=== PATIENT | male | born 1990 | race Caucasian/White ===

== ENCOUNTER 2016-10-14 15:15 | Inpatient (IN) | payer OTHER ==
[~2016-10-14] VITALS: Ht 180.3 cm; Wt 71.4 kg
[2016-10-14 16:15] VITALS: BP 144/68
[2016-10-14] MEDS ORDERED: KLONOPIN1 M1 PO (16:30)
[2016-10-14] MEDS ORDERED: NEURONTIN600 MG PO (16:31)
[2016-10-14] MEDS ORDERED: CITALOPRAM20 MG PO (16:42)
[2016-10-14 17:18] LABS: BILIRUBIN NEGATIVE (NEGATIVE); BLOOD 3+ (NEGATIVE); CLARITY SL CLOUDY (CLEAR); COLOR YELLOW (YELLOW); GLUCOSE NEGATIVE (NEGATIVE); KETONE NEGATIVE (NEGATIVE); LEUKO ESTERASE NEGATIVE (NEGATIVE); NITRITE NEGATIVE (NEGATIVE); PH 5.5 (5.0-9.0); PROTEIN 1+ (NEGATIVE); SPECIFIC GRAVITY >= 1.030 (1.005-1.030); UROBILINOGEN 0.2 E.U./dl (0.2-1.0)
[2016-10-14 17:26] LABS: BASO % 0.3 % (0.0-1.0); EOS # 0.4 10*3/uL (0.0-0.4); EOS % 3.5 % (1.0-4.0); HEMOGLOBIN 15.3 g/dl (14.0-18.0); LYMPH # 2.6 10*3/uL (1.3-4.4); LYMPH % 26.3 % (27.0-41.0); MEAN CELL VOLUME 88.7 fl (80.0-94.0); MEAN CORPUSCULAR HGB 30.8 pg (27.0-31.0); MEAN CORPUSCULAR HGB CONC 34.8 g/dl (33.0-37.0); MONO # 0.9 10*3/uL (0.1-1.0); NEUT # 6.1 10*3/uL (2.3-7.9); NEUT % 60.7 % (47.0-73.0); PLATELET COUNT AUTOMATED 285 10*3/uL (130-400); RED BLOOD COUNT 4.96 10*6/uL (4.50-5.90); RED CELL DISTRI WIDTH 11.7 % (0-14.5)
[2016-10-14 17:28] LABS: URINE AMPHETAMINES < 1000 (1000ng/ml); URINE BARBITURATES < 200 (200ng/ml); URINE COCAINE > 300 (300ng/ml)
[2016-10-14 17:29] LABS: BACTERIA 1+; RBC 51-100 rbc/hpf (0-2); URINE REFLEX COMMENT YES (NO)
[2016-10-14 17:42] LABS: ALBUMIN 4.2 gm/dl (3.1-4.5); ALKALINE PHOSPHATASE 60 U/L (45-117); BILIRUBIN, TOTAL 0.4 mg/dl (0.2-1.0); BUN 16 mg/dl (7-24); CARBON DIOXIDE 32 mmol/L (21-32); CHLORIDE 99 mmol/L (98-107); EST GLOM FILT AFRICAN AMERICAN > 60 ml/min; GLUCOSE 93 mg/dL (65-99); SGOT/AST 24 IU/L (3-35); SGPT/ALT 25 U/L (12-78); SODIUM 139 mmol/L (136-145); TOTAL PROTEIN 7.1 gm/dL (6.4-8.2)
[2016-10-14 17:44] LABS: PROTHROMBIN TIME 10.7 SECONDS (9.0-12.4)
[2016-10-14 20:00] VITALS: BP 118/75
[2016-10-15] VITALS (7 sets, daily range): BP systolic 101–134; BP diastolic 48–67
[2016-10-16] VITALS: BP 94/50
[2016-10-16 07:58] VITALS: BP 122/40
[2016-10-16] MEDS ORDERED: ATARAX,VISTARIL50 MG PO (10:57)
[2016-10-16] MEDS ORDERED: ROPINIROLE HYD0.5 MG PO (10:57)
[2016-10-16] MEDS ORDERED: METHOCARBAMOL750 M1 PO (10:57)
[2016-10-16] MEDS ORDERED: ZOFRAN 4 MG ED2 TAB PO (10:59)
== END 2016-10-16 11:53 | disposition home or self-care (01) | DRG 897 ==
LOC: 4E 15:15
PROVIDERS: Internal Medicine Hospice and Palliative Medicine
DX: F11.23 Opioid dependence with withdrawal (principal); F14.90 Cocaine use, unspecified, uncomplicated; R31.29 Other microscopic hematuria; F19.90 Other psychoactive substance use, unspecified, uncomplicated; Z71.6 Tobacco abuse counseling

== ENCOUNTER 2019-07-20 16:46 | Inpatient (IN) | payer OTHER ==
[~2019-07-20] VITALS: Ht 180.3 cm; Wt 70.5 kg
[~2019-07-20 16:46] MED LIST: ADDERALL 30 MG30 MG PO; ATARAX,VISTARIL50 MG PO; CITALOPRAM20 MG PO; KLONOPIN1 M1 PO; METHOCARBAMOL750 M1 PO; NEURONTIN600 MG PO; ROPINIROLE HYD0.5 MG PO; XANAX2 M1 PO; ZOFRAN 4 MG ED2 TAB PO
[2019-07-20 18:00] VITALS: BP 129/81
--- NOTE | 2019-07-20 18:00 | NUR ---
29 year old MALE admitted to room # 517 for stabilization. Reports an addiction to CRACK/COCAINE last used 07/19/19 hours prior to admission. Compliant with admission procedure. Patient denies any anxiety, but is unable to sit still, taps toes to floor continuously, looks about room, unable to focus eyes on nurse during interview. See assessment forms for additional information about patient status. INITIAL ASSESSMENT IS COMPLETE. NO QUESTIONS AT THIS TIME.
--- NOTE | 2019-07-20 18:08 | NUR ---
PATIENT MEETS [facility]. CINA=16. PATIENT WANTS TO FOLLOW UP WITH OUTPATIENT TREATMENT NEAR HIS HOMEL [facility] STAFF WILL PROVIDE REFERRAL OPTIONS. XIOMARA LAWTON B.A. CHILD SUPPORT INVESTIGATOR
[2019-07-20 18:41] LABS: BASO % 0.3 % (0.0-1.0); EOS # 0.2 10*3/uL (0.0-0.4); EOS % 1.5 % (1.0-4.0); HEMATOCRIT 49.6 % (42.0-52.0); HEMOGLOBIN 16.9 g/dl (14.0-18.0); LYMPH # 2.8 10*3/uL (1.3-4.4); LYMPH % 24.4 % (27.0-41.0); MEAN CORPUSCULAR HGB 31.4 pg (27.0-31.0); MEAN CORPUSCULAR HGB CONC 34.1 g/dl (33.0-37.0); MEAN PLATELET VOLUME 8.9 fl (9.6-12.3); MONO # 0.7 10*3/uL (0.1-1.0); MONO % 5.9 % (3.0-9.0); NEUT # 7.6 10*3/uL (2.3-7.9); NEUT % 67.5 % (47.0-73.0); PLATELET COUNT AUTOMATED 404 10*3/uL (130-400); RED BLOOD COUNT 5.39 10*6/uL (4.50-5.90); RED CELL DISTRI WIDTH 12.9 % (0-14.5); WHITE BLOOD COUNT 11.3 10*3/uL (4.8-10.8)
[2019-07-20 18:52] LABS: INTERNATIONAL NORM RATIO 0.9 (2.0-3.5)
[2019-07-20 18:55] LABS: ALBUMIN 4.7 gm/dl (3.1-4.5); ALKALINE PHOSPHATASE 74 U/L (45-117); BUN 12 mg/dl (7-24); CHLORIDE 101 mmol/L (98-107); CREATININE 1.03 mg/dL (0.70-1.30); POTASSIUM 4.2 mmol/L (3.5-5.1); SGOT/AST 19 IU/L (3-35); SGPT/ALT 30 U/L (12-78); SODIUM 137 mmol/L (136-145); TOTAL PROTEIN 8.4 gm/dL (6.4-8.2)
[2019-07-20 20:00] VITALS: BP 128/63
--- NOTE | 2019-07-20 20:30 | NUR ---
RESTING IN BED WITH NO DISTRESS NOTED. RESPIRATIONS EASY. LUNGS DIMINISHED, CLEAR. PULSE OX 100% RA. CALL LIGHT WITHIN REACH. NO VOICED COMPLAINTS
--- NOTE | 2019-07-20 20:50 | NUR ---
24 HR chart check completed.
--- NOTE | 2019-07-20 21:39 | NUR ---
Patient displaying withdrawal symptoms, including: anxiousness AND restlessness. Scheduled medications provided, SEE EMAR. Will continue to monitor medication effectiveness.
[2019-07-20 21:48] LABS: BILIRUBIN NEGATIVE (NEGATIVE); BLOOD NEGATIVE (NEGATIVE); CLARITY CLEAR (CLEAR); COLOR YELLOW (YELLOW); GLUCOSE NEGATIVE (NEGATIVE); KETONE NEGATIVE (NEGATIVE); NITRITE NEGATIVE (NEGATIVE); PH 6.5 (5.0-9.0); SPECIFIC GRAVITY 1.015 (1.005-1.030); UROBILINOGEN 0.2 E.U./dl (0.2-1.0)
[2019-07-20 21:49] LABS: EPITHELIAL CELLS 0-2; LEUKO ESTERASE NEGATIVE (NEGATIVE)
[2019-07-20 21:50] LABS: URINE AMPHETAMINES < 1000 (1000ng/ml); URINE BARBITURATES < 200 (200ng/ml); URINE BENZODIAZEPINES < 200 (200ng/ml); URINE CANNABINOIDS (THC) < 50 (50ng/ml); URINE COCAINE > 300 (300ng/ml); URINE METHADONE < 300 (300ng/ml); URINE OPIATES < 300 (300ng/ml); URINE PHENCYCLIDINE < 25 (25ng/ml)
--- NOTE | 2019-07-20 23:00 | NUR ---
Patient resting. Responding to scheduled medications with fewer complaints of pain and anxiety.
[2019-07-21] VITALS: BP 128/63
--- NOTE | 2019-07-21 00:10 | NUR ---
AMBULATING HALLWAY. NO DISTRESS NOTED. NO VOICED COMPLAINTS
[2019-07-21 04:00] VITALS: BP 122/60
--- NOTE | 2019-07-21 06:00 | NUR ---
Patient resting. Responding to scheduled medications with fewer complaints of pain and anxiety.
--- NOTE | 2019-07-21 11:56 | NUR ---
Nutritional Support Services Note: Pt with dx of opiate withdrawal, ADHD and anxiety. Pt states he has had a loss of appetite and unintentional weight loss recently. Ht.5'11 Wt.156# IBW 172#. Pt is receiving a regular diet which he is eating 100% of. He receive a snack at HS and as desired. Encouraged continued good intake of meals. Pt is underweight but do no see any signs of malnutrition at this time. Will follow as needed. Geraldine Calvillo Rdn Ld
[2019-07-21 12:00] VITALS: BP 108/55
--- NOTE | 2019-07-21 15:37 | NUR ---
[facility] IN TO SEE PATIENT. [facility] PROVIDED REFERRAL OPTIONS. PATIENT IS GOING TO FOLLOW UP WITH COUNSELING. PATIENT WANTS TO SET UP HIS OWN APPOINTMENT. PATIENT AGREES AND UNDERTANDS HIS AFTERCARE PLAN. XIOMARA LAWTON B.A. CASINO CAGE SUPERVISOR
[2019-07-21 16:00] VITALS: BP 110/60
[2019-07-21 20:00] VITALS: BP 118/69
--- NOTE | 2019-07-21 20:00 | NUR ---
Patient resting quietly with no c/o discomfort. Respirations easy and regular. Vital signs stable. No overt distress. LOVE KC
[2019-07-22] VITALS: BP 107/53
--- NOTE | 2019-07-22 05:31 | NUR ---
24 HR chart check completed.
[2019-07-22 08:00] VITALS: BP 102/61
[2019-07-22] MEDS ORDERED: ZOFRAN4 MG PO (10:57)
[2019-07-22] MEDS ORDERED: ATARAX,VISTARIL50 MG PO (10:57)
--- NOTE | 2019-07-22 13:35 | NUR ---
Patient discharged in stable condition, referral letter provided to patient with specific instructions and appointment for ongoing treatment. Patient verbalizes understanding of discharge plan.
== END 2019-07-22 13:30 | disposition home or self-care (01) | DRG 773 ==
LOC: 5E 16:46
PROVIDERS: Internal Medicine; ADMIT Internal Medicine
DX: F14.23 Cocaine dependence with withdrawal (principal); D47.3 Essential (hemorrhagic) thrombocythemia; D72.810 Lymphocytopenia; F11.20 Opioid dependence, uncomplicated; F90.9 Attention-deficit hyperactivity disorder, unspecified type; F41.9 Anxiety disorder, unspecified; G47.00 Insomnia, unspecified; F12.10 Cannabis abuse, uncomplicated; Z79.899 Other long term (current) drug therapy; Z72.0 Tobacco use; Z71.6 Tobacco abuse counseling

== ENCOUNTER 2019-12-22 14:46 | Inpatient (IN) | payer OTHER ==
[~2019-12-22] VITALS: Ht 154.9 cm; Wt 72.3 kg
[~2019-12-22 14:46] MED LIST changes: +ZOFRAN4 MG PO
[2019-12-22 15:50] VITALS: BP 103/63
--- NOTE | 2019-12-22 15:50 | NUR ---
Time: 1549 A 29 year old MALE admitted to under services of RODRIGO BENITEZ DO. Pt. arrived via stretcher from [place]. Chief complaint: HERE FOR MEDICAL STABILIZATION FOR OPIATE WITHDRAWAL. ZENON AWAD
--- NOTE | 2019-12-22 16:06 | NUR ---
PATIENT MEETS [facility]. PATIENT WANTS TO FOLLOW UP WITH [facility] FOR HIS AFTERCARE PLAN. XIOMARA LAWTON B.A. FORM BUILDER
--- NOTE | 2019-12-22 16:16 | NUR ---
Notified Dr. Pacheco that pt is here. Notified of meds he takes at home and hx.
--- NOTE | 2019-12-22 17:17 | NUR ---
Pt has come up to the nurses station twice asking when meds will start. I spoke with Dr. Toscano regarding this as pt is not ordered any taper yet just PRN meds. States she will be up to see pt.
[2019-12-22 17:47] LABS: BILIRUBIN NEGATIVE (NEGATIVE); BLOOD NEGATIVE (NEGATIVE); CLARITY SL CLOUDY (CLEAR); COLOR YELLOW (YELLOW); GLUCOSE NEGATIVE (NEGATIVE); KETONE NEGATIVE (NEGATIVE); LEUKO ESTERASE NEGATIVE (NEGATIVE); NITRITE NEGATIVE (NEGATIVE); PH 7.5 (5.0-9.0); UROBILINOGEN 0.2 E.U./dl (0.2-1.0)
[2019-12-22 17:52] LABS: URINE AMPHETAMINES < 1000 (1000ng/ml); URINE BARBITURATES < 200 (200ng/ml); URINE BENZODIAZEPINES > 200 (200ng/ml); URINE CANNABINOIDS (THC) > 50 (50ng/ml); URINE COCAINE > 300 (300ng/ml); URINE METHADONE > 300 (300ng/ml); URINE OPIATES < 300 (300ng/ml)
[2019-12-22 17:53] LABS: URINE PHENCYCLIDINE < 25 (25ng/ml)
[2019-12-22 17:59] LABS: WBC 0-2 wbc/hpf (0-5)
[2019-12-22 19:36] LABS: BASO % 0.2 % (0.0-1.0); EOS # 0.2 10*3/uL (0.0-0.4); EOS % 1.6 % (1.0-4.0); HEMATOCRIT 47.4 % (42.0-52.0); LYMPH # 3.3 10*3/uL (1.3-4.4); LYMPH % 31.3 % (27.0-41.0); MEAN CELL VOLUME 90.5 fl (80.0-94.0); MEAN CORPUSCULAR HGB 29.8 pg (27.0-31.0); MEAN CORPUSCULAR HGB CONC 32.9 g/dl (33.0-37.0); MEAN PLATELET VOLUME 8.8 fl (9.6-12.3); MONO # 0.6 10*3/uL (0.1-1.0); NEUT # 6.5 10*3/uL (2.3-7.9); NEUT % 60.7 % (47.0-73.0); PLATELET COUNT AUTOMATED 298 10*3/uL (130-400); RED BLOOD COUNT 5.24 10*6/uL (4.50-5.90); RED CELL DISTRI WIDTH 12.4 % (0-14.5); WHITE BLOOD COUNT 10.6 10*3/uL (4.8-10.8)
[2019-12-22 19:52] LABS: ALKALINE PHOSPHATASE 78 U/L (45-117); BUN 16 mg/dl (7-24); CHLORIDE 101 mmol/L (98-107); CREATININE 1.25 mg/dL (0.70-1.30); ETHYL ALCOHOL < 3.0 mg/dl (<3); POTASSIUM 4.1 mmol/L (3.5-5.1); SGOT/AST 16 IU/L (3-35); SGPT/ALT 31 U/L (12-78); SODIUM 137 mmol/L (136-145); TOTAL PROTEIN 7.8 gm/dL (6.4-8.2)
[2019-12-22 20:00] VITALS: BP 117/63
[2019-12-23] VITALS: BP 100/60
[2019-12-23 04:00] VITALS: BP 133/90
--- NOTE | 2019-12-23 07:38 | NUR ---
Shift chart check completed.24 HR chart check completed.
[2019-12-23 08:00] VITALS: BP 108/63
--- NOTE | 2019-12-23 08:33 | NUR ---
ON ASSESSMENT PATIENT IS UP AND ABOUT IN HIS ROOM WITHOUT DIFFICULTY. HIS SPEECH IS RAPID. STILL DOESN'T WANT TO START SUBUTEX "BECAUSE I STARTED IT TOO SOON LAST TIME". HE DOES COMPLAIN OF "GOOSEBUMPS". I ASKED ABOUT CONSTIPATION OR DIARRHEA AND HE SAID HE WAS "LOOSE" YESTERDAY BUT DOESN'T WANT ANYTHING RIGHT NOW. HE SAYS AT HOME THAT HE TAKES HIS ADDERAL AT 0800 DAILY, AND HIS XANAX [phone]. WILL MEDICATE NEEDED. SEE ALL APPROPRIATE INTERVENTIONS.
--- NOTE | 2019-12-23 09:10 | NUR ---
VISTARIL AND REQUIP FOR "RESTLESSNESS, GOOSEBUMPS". XANAX CHANGED TO SCHEDULED Q8H AND A DOSE GIVEN AT 0910 ALSO.
--- NOTE | 2019-12-23 10:06 | NUR ---
RESTING AT PRESENT WITH "SOME" RELIEF OF ANXIETY. WILL CONTINUE TO MONITOR.
[2019-12-23 12:00] VITALS: BP 114/65
--- NOTE | 2019-12-23 15:45 | NUR ---
PT REQUESTED AND RECEIVED PO BENTYL AND ZOFRAN PER PRN ORDER FOR C/O STOMACH CRAMPS AND NAUSEA. WILL MONITOR EFFECTIVENESS.
[2019-12-23 16:00] VITALS: BP 126/79
--- NOTE | 2019-12-23 16:45 | NUR ---
Patient resting. Responding to scheduled medications with fewer complaints of pain and anxiety.
--- NOTE | 2019-12-23 18:56 | NUR ---
PT MEDICATED WITH PO TUMS PER PRN ORDER FOR C/O INDIGESTION. WILL MONITOR EFFECTIVENESS.
[2019-12-23 20:00] VITALS: BP 137/86
--- NOTE | 2019-12-23 20:35 | NUR ---
PATIENT ASSESSMENT COMPLETED AT THIS TIME WITHOUT INCIDENT. PATIENT DENIES CHEST PAIN, SHORTNESS OF BREATH OR OTHER DISTRESS AT THIS TIME. REQUESTED TO KNOW WHAT TIMES AND WHAT PRN MEDICATIONS HE COULD HAVE IF HE NEEDED THEM LATER. CALL LIGHT WITHIN REACH, WILL CONTINUE TO MONITOR.
--- NOTE | 2019-12-24 02:00 | NUR ---
PATIENT REQUESTED NOT TO BE AWAKENED AT THIS TIME FOR SUBUTEX, HE IS REFUSING SUBUTEX HE "DOESN'T TAKE THAT UNLESS I'M IN FULL WITHDRAWL".
--- NOTE | 2019-12-24 05:10 | NUR ---
24 HOUR CHART CHECK COMPLETE
[2019-12-24 08:00] VITALS: BP 117/77
--- NOTE | 2019-12-24 09:00 | NUR ---
PATIENT MEDICATED WITH ZOFRAN PER ORDER FOR COMPLAINTS OF NAUSEA. WILL MONITOR FOR EFFECTIVENESS.
--- NOTE | 2019-12-24 10:00 | NUR ---
PER PATIENT, PRN ZOFRAN WAS EFFECTIVE.
--- NOTE | 2019-12-24 11:00 | NUR ---
PATIENT WENT OFF THE FLOOR AND WENT OUTSIDE. NOTIFIED THE DR THAT HE LEFT THE FLOOR AND ADMINISTRATIVE DISCHARGE WAS ORDERED. PT WAS UNDERSTANDING. AMBULATORY OFF FLOOR AT THIS TIME. OBSTETRICS NURSE PRACTITIONER AWARE. SHIRA ROTHMAN
== END 2019-12-24 11:00 | disposition other institution (70) | DRG 770 ==
LOC: 5E 14:46
PROVIDERS: Internal Medicine; ADMIT Emergency Medicine
DX: F11.23 Opioid dependence with withdrawal (principal); R00.1 Bradycardia, unspecified; D72.810 Lymphocytopenia; F17.210 Nicotine dependence, cigarettes, uncomplicated; F90.9 Attention-deficit hyperactivity disorder, unspecified type; G47.00 Insomnia, unspecified; L03.113 Cellulitis of right upper limb; F14.23 Cocaine dependence with withdrawal; Z71.6 Tobacco abuse counseling

== ENCOUNTER 2020-02-15 17:01 | Inpatient (IN) | payer OTHER ==
[~2020-02-15] VITALS: Ht 180.3 cm; Wt 75.9 kg
[2020-02-15 17:15] VITALS: BP 144/78
[2020-02-15 19:58] LABS: BASO % 0.3 % (0.0-1.0); EOS # 0.3 10*3/uL (0.0-0.4); EOS % 3.6 % (1.0-4.0); HEMATOCRIT 46.7 % (42.0-52.0); LYMPH # 3.5 10*3/uL (1.3-4.4); LYMPH % 39.8 % (27.0-41.0); MEAN CELL VOLUME 87.9 fl (80.0-94.0); MEAN CORPUSCULAR HGB 29.6 pg (27.0-31.0); MEAN CORPUSCULAR HGB CONC 33.6 g/dl (33.0-37.0); MEAN PLATELET VOLUME 8.8 fl (9.6-12.3); MONO # 0.5 10*3/uL (0.1-1.0); MONO % 5.7 % (3.0-9.0); NEUT # 4.5 10*3/uL (2.3-7.9); NEUT % 50.5 % (47.0-73.0); PLATELET COUNT AUTOMATED 392 10*3/uL (130-400); RED BLOOD COUNT 5.31 10*6/uL (4.50-5.90); RED CELL DISTRI WIDTH 12.6 % (0-14.5); WHITE BLOOD COUNT 8.9 10*3/uL (4.8-10.8)
[2020-02-15 20:03] VITALS: BP 133/71
[2020-02-15 20:15] LABS: URINE AMPHETAMINES > 1000 (1000ng/ml); URINE BARBITURATES < 200 (200ng/ml); URINE BENZODIAZEPINES > 200 (200ng/ml); URINE CANNABINOIDS (THC) > 50 (50ng/ml); URINE COCAINE > 300 (300ng/ml); URINE METHADONE < 300 (300ng/ml); URINE OPIATES > 300 (300ng/ml)
[2020-02-15 20:19] LABS: URINE PHENCYCLIDINE < 25 (25ng/ml)
[2020-02-15 20:39] LABS: ALBUMIN 4.1 gm/dl (3.1-4.5); ALKALINE PHOSPHATASE 82 U/L (45-117); BUN 17 mg/dl (7-24); CHLORIDE 100 mmol/L (98-107); CREATININE 1.08 mg/dL (0.70-1.30); POTASSIUM 4.1 mmol/L (3.5-5.1); SGOT/AST 31 IU/L (3-35); SGPT/ALT 41 U/L (12-78); SODIUM 138 mmol/L (136-145); TOTAL PROTEIN 7.5 gm/dL (6.4-8.2)
[2020-02-15 20:40] LABS: TROPONIN I < 0.015 ng/ml (<0.045)
[2020-02-15 21:34] VITALS: BP 119/77
[2020-02-15 21:51] VITALS: BP 121/83
[2020-02-16] VITALS: BP 120/88
[2020-02-16 04:00] VITALS: BP 136/81
[2020-02-16 08:00] VITALS: BP 122/88
[2020-02-16 12:00] VITALS: BP 134/76
[2020-02-16 16:00] VITALS: BP 124/86
[2020-02-16 20:00] VITALS: BP 101/55
[2020-02-17] VITALS: BP 104/55
[2020-02-17 08:00] VITALS: BP 110/56
== END 2020-02-17 11:40 | disposition left against medical advice (07) | DRG 770 ==
LOC: ED 17:01 → ICCU 20:30 → EDHOLD 20:30 → ICCU 21:21 → 4E 02-17 07:39
PROVIDERS: Student in an Organized Health Care Education/Training Program; ADMIT Internal Medicine; ATTEND Internal Medicine
DX: F11.23 Opioid dependence with withdrawal (principal); F41.9 Anxiety disorder, unspecified; F14.23 Cocaine dependence with withdrawal; F17.210 Nicotine dependence, cigarettes, uncomplicated; F90.9 Attention-deficit hyperactivity disorder, unspecified type; Z53.29 Procedure and treatment not carried out because of patient's decision for other reasons

== ENCOUNTER 2021-05-26 13:31 | Inpatient (IN) | payer OTHER ==
[~2021-05-26] VITALS: Ht 180.3 cm; Wt 79.1 kg
[2021-05-26 13:41] VITALS: BP 119/73
[2021-05-26] MEDS ORDERED: METHADONE HCL40 M1 PO (13:50)
[2021-05-26 14:09] LABS: BASO % 0.2 % (0.0-1.0); EOS # 0.2 10*3/uL (0.0-0.4); EOS % 2.2 % (1.0-4.0); HEMATOCRIT 43.8 % (42.0-52.0); LYMPH # 2.1 10*3/uL (1.3-4.4); LYMPH % 23.2 % (27.0-41.0); MEAN CELL VOLUME 89.2 fl (80.0-94.0); MEAN CORPUSCULAR HGB CONC 34.7 g/dl (33.0-37.0); MEAN PLATELET VOLUME 8.7 fl (9.6-12.3); MONO # 0.8 10*3/uL (0.1-1.0); MONO % 8.6 % (3.0-9.0); NEUT # 5.8 10*3/uL (2.3-7.9); NEUT % 65.5 % (47.0-73.0); PLATELET COUNT AUTOMATED 352 10*3/uL (130-400); RED BLOOD COUNT 4.91 10*6/uL (4.50-5.90); RED CELL DISTRI WIDTH 12.9 % (0-14.5); WHITE BLOOD COUNT 8.8 10*3/uL (4.8-10.8)
[2021-05-26 14:22] LABS: BILIRUBIN Negative (Negative); BLOOD Negative (Negative); CLARITY Clear (Clear); COLOR Yellow (Yellow); GLUCOSE Negative (Negative); KETONE Negative (Negative); LEUKO ESTERASE Negative (Negative); NITRITE Negative (Negative); PH 5.5 (4.5-8.0); UROBILINOGEN 0.2 E.U./dl (0.0-1.0)
[2021-05-26 14:25] LABS: ALBUMIN 3.7 gm/dl (3.1-4.5); ALKALINE PHOSPHATASE 107 U/L (45-117); BUN 20 mg/dl (7-24); CHLORIDE 107 mmol/L (98-107); CREATININE 0.97 mg/dL (0.70-1.30); POTASSIUM 4.2 mmol/L (3.5-5.1); SGOT/AST 79 IU/L (3-35); SGPT/ALT 101 U/L (12-78); SODIUM 137 mmol/L (136-145); TOTAL PROTEIN 7.9 gm/dL (6.4-8.2)
[2021-05-26 14:34] LABS: URINE AMPHETAMINES < 1000 (1000ng/ml); URINE BARBITURATES < 200 (200ng/ml); URINE BENZODIAZEPINES > 200 (200ng/ml); URINE COCAINE > 300 (300ng/ml); URINE METHADONE > 300 (300ng/ml); URINE OPIATES < 300 (300ng/ml)
[2021-05-26 14:35] LABS: URINE PHENCYCLIDINE < 25 (25ng/ml)
[2021-05-26 14:36] LABS: URINE CANNABINOIDS (THC) > 50 (50ng/ml)
[2021-05-26 14:39] LABS: BACTERIA TRACE; RBC 0-2 rbc/hpf (0-2); WBC 0-2 wbc/hpf (0-5)
[2021-05-26] MEDS ORDERED: AMITRIPTYLINE25 MG PO (17:05)
[2021-05-26 19:53] VITALS: BP 108/62
[2021-05-26 23:50] VITALS: BP 107/65
[2021-05-27 04:02] VITALS: BP 102/63
[2021-05-27 04:32] LABS: BASO % 0.6 % (0.0-1.0); EOS # 0.2 10*3/uL (0.0-0.4); EOS % 2.9 % (1.0-4.0); HEMATOCRIT 43.3 % (42.0-52.0); LYMPH # 2.1 10*3/uL (1.3-4.4); LYMPH % 32.3 % (27.0-41.0); MEAN CELL VOLUME 91.4 fl (80.0-94.0); MEAN CORPUSCULAR HGB 30.4 pg (27.0-31.0); MEAN CORPUSCULAR HGB CONC 33.3 g/dl (33.0-37.0); MEAN PLATELET VOLUME 9.1 fl (9.6-12.3); MONO # 0.5 10*3/uL (0.1-1.0); MONO % 7.5 % (3.0-9.0); NEUT # 3.7 10*3/uL (2.3-7.9); NEUT % 56.4 % (47.0-73.0); PLATELET COUNT AUTOMATED 331 10*3/uL (130-400); RED BLOOD COUNT 4.74 10*6/uL (4.50-5.90); WHITE BLOOD COUNT 6.5 10*3/uL (4.8-10.8)
[2021-05-27 04:56] LABS: ALBUMIN 3.1 gm/dl (3.1-4.5); ALKALINE PHOSPHATASE 96 U/L (45-117); BUN 19 mg/dl (7-24); CHLORIDE 107 mmol/L (98-107); CREATININE 0.98 mg/dL (0.70-1.30); POTASSIUM 4.4 mmol/L (3.5-5.1); SGOT/AST 152 IU/L (3-35); SGPT/ALT 178 U/L (12-78); SODIUM 138 mmol/L (136-145); TOTAL PROTEIN 6.8 gm/dL (6.4-8.2)
[2021-05-27 05:02] LABS: FREE T4 0.98 ng/dl (0.76-1.46)
[2021-05-27 06:40] VITALS: BP 98/58
[2021-05-27 08:50] VITALS: BP 120/71
[2021-05-27 12:00] VITALS: BP 126/66
[2021-05-27 16:00] VITALS: BP 118/62
[2021-05-27 20:00] VITALS: BP 136/57
[2021-05-28] VITALS: BP 126/60
[2021-05-28 08:00] VITALS: BP 99/60
[2021-05-28 12:00] VITALS: BP 114/60
[2021-05-28 16:00] VITALS: BP 90/60
[2021-05-28 20:00] VITALS: BP 90/49
[2021-05-29] VITALS: BP 96/51
[2021-05-29 07:27] LABS: BASO % 0.5 % (0.0-1.0); EOS # 0.2 10*3/uL (0.0-0.4); EOS % 2.4 % (1.0-4.0); HEMATOCRIT 45.7 % (42.0-52.0); LYMPH # 2.4 10*3/uL (1.3-4.4); LYMPH % 36.9 % (27.0-41.0); MEAN CELL VOLUME 91.2 fl (80.0-94.0); MEAN CORPUSCULAR HGB 30.3 pg (27.0-31.0); MEAN CORPUSCULAR HGB CONC 33.3 g/dl (33.0-37.0); MEAN PLATELET VOLUME 9.1 fl (9.6-12.3); MONO # 0.7 10*3/uL (0.1-1.0); MONO % 10.4 % (3.0-9.0); NEUT # 3.2 10*3/uL (2.3-7.9); NEUT % 49.3 % (47.0-73.0); PLATELET COUNT AUTOMATED 346 10*3/uL (130-400); RED BLOOD COUNT 5.01 10*6/uL (4.50-5.90); RED CELL DISTRI WIDTH 13.1 % (0-14.5); WHITE BLOOD COUNT 6.5 10*3/uL (4.8-10.8)
[2021-05-29 07:41] LABS: BUN 17 mg/dl (7-24); CHLORIDE 105 mmol/L (98-107); CREATININE 1.06 mg/dL (0.70-1.30); POTASSIUM 3.9 mmol/L (3.5-5.1); SODIUM 137 mmol/L (136-145)
[2021-05-29 08:00] VITALS: BP 124/70
[2021-05-29] MEDS ORDERED: AMITRIPTYLINE25 MG PO (10:55)
== END 2021-05-29 11:45 | disposition home or self-care (01) | DRG 773 ==
LOC: ED 13:31 → EDHOLD 14:45 → 5E 14:45 → EDHOLD 15:59 → 5E 05-27 08:33
PROVIDERS: Emergency Medicine; Internal Medicine; ADMIT Student in an Organized Health Care Education/Training Program; ATTEND Student in an Organized Health Care Education/Training Program
DX: F10.230 Alcohol dependence with withdrawal, uncomplicated (principal); F41.9 Anxiety disorder, unspecified; F17.210 Nicotine dependence, cigarettes, uncomplicated; F12.10 Cannabis abuse, uncomplicated; F14.10 Cocaine abuse, uncomplicated; G47.00 Insomnia, unspecified; R00.1 Bradycardia, unspecified; F11.10 Opioid abuse, uncomplicated; R74.01 Elevation of levels of liver transaminase levels; F90.9 Attention-deficit hyperactivity disorder, unspecified type; Z71.6 Tobacco abuse counseling; Z79.899 Other long term (current) drug therapy

== ENCOUNTER 2021-09-23 09:59 | Inpatient (IN) | payer OTHER ==
[~2021-09-23] VITALS: Ht 180.3 cm; Wt 86.4 kg
[~2021-09-23 09:59] MED LIST changes: +AMITRIPTYLINE25 MG PO; +METHADONE HCL40 M1 PO
[2021-09-23 10:19] VITALS: BP 111/72
[2021-09-23 10:45] LABS: BASO % 0.3 % (0.0-1.0); EOS # 0.6 10*3/uL (0.0-0.4); EOS % 6.4 % (1.0-4.0); HEMATOCRIT 43.3 % (42.0-52.0); LYMPH # 2.2 10*3/uL (1.3-4.4); LYMPH % 23.7 % (27.0-41.0); MEAN CELL VOLUME 89.5 fl (80.0-94.0); MEAN CORPUSCULAR HGB 30.4 pg (27.0-31.0); MEAN CORPUSCULAR HGB CONC 33.9 g/dl (33.0-37.0); MEAN PLATELET VOLUME 8.7 fl (9.6-12.3); MONO # 0.7 10*3/uL (0.1-1.0); MONO % 7.9 % (3.0-9.0); NEUT # 5.6 10*3/uL (2.3-7.9); NEUT % 61.4 % (47.0-73.0); PLATELET COUNT AUTOMATED 331 10*3/uL (130-400); RED BLOOD COUNT 4.84 10*6/uL (4.50-5.90); RED CELL DISTRI WIDTH 13.4 % (0-14.5); WHITE BLOOD COUNT 9.1 10*3/uL (4.8-10.8)
[2021-09-23 11:11] LABS: ALKALINE PHOSPHATASE 147 U/L (45-117); BUN 9 mg/dl (7-24); CHLORIDE 102 mmol/L (98-107); CREATININE 0.99 mg/dL (0.70-1.30); POTASSIUM 4.8 mmol/L (3.5-5.1); SGOT/AST 108 IU/L (3-35); SGPT/ALT 246 U/L (12-78); SODIUM 136 mmol/L (136-145); TOTAL PROTEIN 7.7 gm/dL (6.4-8.2)
[2021-09-23 11:17] LABS: ETHYL ALCOHOL < 3.0 mg/dl (<3)
[2021-09-23 12:00] VITALS: BP 110/76
[2021-09-23 17:00] VITALS: BP 96/54
[2021-09-23] MEDS ORDERED: NEURONTIN600 MG PO (17:35)
[2021-09-23 19:12] LABS: BILIRUBIN Negative (Negative); BLOOD Negative (Negative); CLARITY Clear (Clear); COLOR Yellow (Yellow); GLUCOSE Negative (Negative); KETONE Negative (Negative); LEUKO ESTERASE Negative (Negative); NITRITE Negative (Negative); SPECIFIC GRAVITY <= 1.005 (1.001-1.030); UROBILINOGEN 0.2 E.U./dl (0.0-1.0)
[2021-09-23 19:21] LABS: URINE AMPHETAMINES < 1000 (1000ng/ml); URINE BARBITURATES < 200 (200ng/ml); URINE BENZODIAZEPINES > 200 (200ng/ml); URINE CANNABINOIDS (THC) < 50 (50ng/ml); URINE COCAINE < 300 (300ng/ml); URINE METHADONE > 300 (300ng/ml); URINE OPIATES < 300 (300ng/ml)
[2021-09-23 19:26] LABS: URINE PHENCYCLIDINE < 25 (25ng/ml)
[2021-09-23 19:38] LABS: RBC 0-2 rbc/hpf (0-2)
[2021-09-23 19:56] VITALS: BP 104/65
[2021-09-24] VITALS: BP 112/68
[2021-09-24 06:17] LABS: ALKALINE PHOSPHATASE 128 U/L (45-117); BUN 11 mg/dl (7-24); CHLORIDE 107 mmol/L (98-107); CREATININE 0.89 mg/dL (0.70-1.30); FREE T4 0.94 ng/dl (0.76-1.46); POTASSIUM 4.2 mmol/L (3.5-5.1); SGOT/AST 93 IU/L (3-35); SGPT/ALT 212 U/L (12-78); SODIUM 137 mmol/L (136-145); TOTAL PROTEIN 6.9 gm/dL (6.4-8.2)
[2021-09-24 08:00] VITALS: BP 122/84
[2021-09-24 12:00] VITALS: BP 133/89
[2021-09-24 16:00] VITALS: BP 135/96
[2021-09-24 20:00] VITALS: BP 115/79
[2021-09-25] VITALS: BP 125/80
[2021-09-25 08:00] VITALS: BP 125/71
[2021-09-25] MEDS ORDERED: ATARAX,VISTARIL50 MG PO (11:18)
== END 2021-09-25 11:24 | disposition home or self-care (01) | DRG 773 ==
LOC: ED 09:59 → 5E 11:37 → EDHOLD 11:37 → 5E 16:04
PROVIDERS: Emergency Medicine; Internal Medicine; ADMIT Internal Medicine; ATTEND Internal Medicine
DX: F10.230 Alcohol dependence with withdrawal, uncomplicated (principal); R74.01 Elevation of levels of liver transaminase levels; F12.10 Cannabis abuse, uncomplicated; F90.9 Attention-deficit hyperactivity disorder, unspecified type; F11.20 Opioid dependence, uncomplicated; F17.220 Nicotine dependence, chewing tobacco, uncomplicated; R73.9 Hyperglycemia, unspecified; G89.29 Other chronic pain; Z87.898 Personal history of other specified conditions; Z86.59 Personal history of other mental and behavioral disorders; Z71.6 Tobacco abuse counseling; Z79.899 Other long term (current) drug therapy

== ENCOUNTER 2021-10-19 23:11 | Emergency (ER) | payer OTHER ==
[~2021-10-19] VITALS: Ht 180.3 cm; Wt 79.4 kg
[2021-10-19 23:48] LABS: BASO % 0.5 % (0.0-1.0); EOS # 0.7 10*3/uL (0.0-0.4); EOS % 7.9 % (1.0-4.0); HEMATOCRIT 37.9 % (42.0-52.0); LYMPH # 3.3 10*3/uL (1.3-4.4); LYMPH % 37.2 % (27.0-41.0); MEAN CELL VOLUME 89.8 fl (80.0-94.0); MEAN CORPUSCULAR HGB 30.3 pg (27.0-31.0); MEAN CORPUSCULAR HGB CONC 33.8 g/dl (33.0-37.0); MEAN PLATELET VOLUME 8.7 fl (9.6-12.3); MONO # 0.8 10*3/uL (0.1-1.0); MONO % 8.5 % (3.0-9.0); NEUT % 45.8 % (47.0-73.0); PLATELET COUNT AUTOMATED 367 10*3/uL (130-400); RED BLOOD COUNT 4.22 10*6/uL (4.50-5.90); RED CELL DISTRI WIDTH 13.4 % (0-14.5); WHITE BLOOD COUNT 8.8 10*3/uL (4.8-10.8)
[2021-10-20 00:18] LABS: ALKALINE PHOSPHATASE 99 U/L (45-117); BUN 15 mg/dl (7-24); CHLORIDE 107 mmol/L (98-107); CREATININE 0.85 mg/dL (0.70-1.30); POTASSIUM 4.2 mmol/L (3.5-5.1); SGOT/AST 77 IU/L (3-35); SGPT/ALT 132 U/L (12-78); SODIUM 138 mmol/L (136-145); TOTAL PROTEIN 6.6 gm/dL (6.4-8.2)
[2021-10-20 00:35] LABS: ETHYL ALCOHOL < 3.0 mg/dl (<3)
[2021-10-20 02:52] LABS: BILIRUBIN Negative (Negative); BLOOD Negative (Negative); CLARITY Clear (Clear); COLOR Yellow (Yellow); GLUCOSE Negative (Negative); KETONE Negative (Negative); LEUKO ESTERASE Negative (Negative); NITRITE Negative (Negative); PH 6.5 (4.5-8.0)
[2021-10-20 03:00] LABS: URINE AMPHETAMINES < 1000 (1000ng/ml); URINE BARBITURATES > 200 (200ng/ml); URINE BENZODIAZEPINES > 200 (200ng/ml); URINE CANNABINOIDS (THC) > 50 (50ng/ml); URINE COCAINE > 300 (300ng/ml); URINE METHADONE > 300 (300ng/ml); URINE OPIATES < 300 (300ng/ml)
[2021-10-20 03:08] LABS: URINE PHENCYCLIDINE < 25 (25ng/ml)
[2021-10-20 03:11] LABS: BACTERIA TRACE; RBC 0-2 rbc/hpf (0-2)
== END 2021-10-20 09:16 | disposition home or self-care (01) ==
LOC: ED 23:11
PROVIDERS: Internal Medicine
DX: F19.10 Other psychoactive substance abuse, uncomplicated (principal)

== ENCOUNTER 2021-11-20 13:04 | Inpatient (IN) | payer OTHER ==
[~2021-11-20] VITALS: Ht 180 cm; Wt 84.5 kg
[2021-11-20 13:45] VITALS: BP 137/90
[2021-11-20 15:14] LABS: BASO % 0.2 % (0.0-1.0); EOS # 0.1 10*3/uL (0.0-0.4); EOS % 0.8 % (1.0-4.0); HEMATOCRIT 41.8 % (42.0-52.0); LYMPH # 2.1 10*3/uL (1.3-4.4); LYMPH % 22.1 % (27.0-41.0); MEAN CELL VOLUME 88.7 fl (80.0-94.0); MEAN CORPUSCULAR HGB 29.9 pg (27.0-31.0); MEAN CORPUSCULAR HGB CONC 33.7 g/dl (33.0-37.0); MEAN PLATELET VOLUME 8.6 fl (9.6-12.3); MONO # 0.9 10*3/uL (0.1-1.0); MONO % 9.8 % (3.0-9.0); NEUT # 6.2 10*3/uL (2.3-7.9); NEUT % 66.8 % (47.0-73.0); PLATELET COUNT AUTOMATED 377 10*3/uL (130-400); RED BLOOD COUNT 4.71 10*6/uL (4.50-5.90); RED CELL DISTRI WIDTH 11.9 % (0-14.5); WHITE BLOOD COUNT 9.3 10*3/uL (4.8-10.8)
[2021-11-20 15:29] LABS: ALKALINE PHOSPHATASE 110 U/L (45-117); BUN 9 mg/dl (7-24); CHLORIDE 102 mmol/L (98-107); CREATININE 0.96 mg/dL (0.70-1.30); POTASSIUM 4.3 mmol/L (3.5-5.1); SGOT/AST 82 IU/L (3-35); SGPT/ALT 149 U/L (12-78); SODIUM 136 mmol/L (136-145); TOTAL PROTEIN 7.8 gm/dL (6.4-8.2)
[2021-11-20 15:31] LABS: ETHYL ALCOHOL < 3.0 mg/dl (<3)
[2021-11-20 18:21] LABS: URINE AMPHETAMINES < 1000 (1000ng/ml); URINE BARBITURATES > 200 (200ng/ml); URINE BENZODIAZEPINES < 200 (200ng/ml); URINE CANNABINOIDS (THC) < 50 (50ng/ml); URINE COCAINE > 300 (300ng/ml); URINE METHADONE < 300 (300ng/ml); URINE OPIATES < 300 (300ng/ml); URINE PHENCYCLIDINE < 25 (25ng/ml)
[2021-11-20 23:50] VITALS: BP 130/82
[2021-11-21 06:42] LABS: BASO % 0.5 % (0.0-1.0); EOS # 0.2 10*3/uL (0.0-0.4); EOS % 2.9 % (1.0-4.0); HEMATOCRIT 40.5 % (42.0-52.0); LYMPH # 2.4 10*3/uL (1.3-4.4); LYMPH % 36.9 % (27.0-41.0); MEAN CORPUSCULAR HGB 30.3 pg (27.0-31.0); MEAN CORPUSCULAR HGB CONC 34.1 g/dl (33.0-37.0); MEAN PLATELET VOLUME 9.1 fl (9.6-12.3); MONO # 0.8 10*3/uL (0.1-1.0); MONO % 11.8 % (3.0-9.0); NEUT # 3.1 10*3/uL (2.3-7.9); NEUT % 47.4 % (47.0-73.0); PLATELET COUNT AUTOMATED 343 10*3/uL (130-400); RED BLOOD COUNT 4.55 10*6/uL (4.50-5.90); RED CELL DISTRI WIDTH 12.1 % (0-14.5); WHITE BLOOD COUNT 6.5 10*3/uL (4.8-10.8)
[2021-11-21 07:00] LABS: BUN 10 mg/dl (7-24); CHLORIDE 107 mmol/L (98-107); POTASSIUM 3.8 mmol/L (3.5-5.1); SODIUM 137 mmol/L (136-145)
[2021-11-21 07:11] LABS: ALKALINE PHOSPHATASE 101 U/L (45-117); CREATININE 0.81 mg/dL (0.70-1.30); FREE T4 0.98 ng/dl (0.76-1.46); SGOT/AST 74 IU/L (3-35); SGPT/ALT 132 U/L (12-78); TOTAL PROTEIN 6.8 gm/dL (6.4-8.2)
[2021-11-21 08:00] VITALS: BP 142/80
[2021-11-21 12:00] VITALS: BP 124/79
[2021-11-21 16:00] VITALS: BP 127/74
[2021-11-21 20:00] VITALS: BP 141/90
[2021-11-22] VITALS: BP 120/79
[2021-11-22 08:00] VITALS: BP 111/73
[2021-11-22 12:00] VITALS: BP 113/69
[2021-11-22 16:00] VITALS: BP 132/78
[2021-11-22 20:00] VITALS: BP 124/78
[2021-11-23] VITALS: BP 113/75
[2021-11-23 08:00] VITALS: BP 104/72
[2021-11-23] MEDS ORDERED: ATARAX,VISTARIL50 MG PO (09:39)
[2021-11-23] MEDS ORDERED: METHOCARBAMOL750 M1 PO (09:39)
[2021-11-23] MEDS ORDERED: Pepcid PO (09:39)
[2021-11-23] MEDS ORDERED: DOXYCYCLINE MO100 MG PO (09:39)
[2021-11-23 15:34] VITALS: BP 134/73
[2021-11-23 20:00] VITALS: BP 140/77
[2021-11-24] VITALS: BP 106/62
[2021-11-24 08:00] VITALS: BP 103/58
== END 2021-11-24 08:50 | disposition home or self-care (01) | DRG 774 ==
LOC: ED 13:04 → EDHOLD 15:36 → 4E 15:36 → 5E 11-23 15:15
PROVIDERS: Internal Medicine; Registered Nurse; ADMIT Student in an Organized Health Care Education/Training Program; ATTEND Student in an Organized Health Care Education/Training Program
DX: F10.230 Alcohol dependence with withdrawal, uncomplicated (principal); F90.9 Attention-deficit hyperactivity disorder, unspecified type; R74.01 Elevation of levels of liver transaminase levels; F17.210 Nicotine dependence, cigarettes, uncomplicated; L03.119 Cellulitis of unspecified part of limb; F14.10 Cocaine abuse, uncomplicated; F12.10 Cannabis abuse, uncomplicated; Z81.1 Family history of alcohol abuse and dependence; Z86.59 Personal history of other mental and behavioral disorders; Z87.898 Personal history of other specified conditions; Z71.6 Tobacco abuse counseling

== ENCOUNTER 2022-11-09 21:42 | Inpatient (IN) | payer OTHER ==
[~2022-11-09] VITALS: Ht 180.3 cm; Wt 90.5 kg
[~2022-11-09 21:42] MED LIST changes: +'XANAX1 MG PO; +AMOX-CLAV 875-1 EACH PO; +B-1100 M1 PO; +BENZONATATE100 M1 PO; +DEXTROAMPH SACC10 M1 PO; +DOXYCYCLINE MO100 MG PO; +MONTELUKAST SOD10 MG PO; +NATURE'S BLEND F1 MG PO; +ONDANSETRON HYDR4 M1 PO; +PANTOPRAZOLE SO40 MG PO; +PREDNISONE10 MG PO; +Pepcid PO; +ROPINIROLE HY0.25 MG PO; +THERA TABLET400 MCG PO; +VITAMIN B-1100 M1 PO
[2022-11-09 21:55] VITALS: BP 132/80
[2022-11-09 22:35] LABS: BASO % 0.4 % (0.0-1.0); EOS # 0.7 10*3/uL (0.0-0.4); EOS % 8.7 % (1.0-4.0); HEMATOCRIT 38.2 % (42.0-52.0); LYMPH % 38.2 % (27.0-41.0); MEAN CELL VOLUME 83.8 fl (80.0-94.0); MEAN CORPUSCULAR HGB 27.6 pg (27.0-31.0); MEAN PLATELET VOLUME 8.8 fl (9.6-12.3); MONO # 0.6 10*3/uL (0.1-1.0); NEUT # 3.5 10*3/uL (2.3-7.9); NEUT % 44.6 % (47.0-73.0); PLATELET COUNT AUTOMATED 358 10*3/uL (130-400); RED BLOOD COUNT 4.56 10*6/uL (4.50-5.90); RED CELL DISTRI WIDTH 13.8 % (0-14.5); WHITE BLOOD COUNT 7.9 10*3/uL (4.8-10.8)
[2022-11-09 22:54] LABS: ALKALINE PHOSPHATASE 90 U/L (46-116); BUN 6 mg/dl (9-23); CHLORIDE 103 mmol/L (98-107); CPK 139 U/L (34-171); ETHYL ALCOHOL 53.7 mg/dl (<3); POTASSIUM 3.6 mmol/L (3.4-5.1); SGPT/ALT 148 U/L (10-49); TOTAL PROTEIN 6.6 gm/dL (6.0-8.0)
[2022-11-09 23:39] LABS: BILIRUBIN Negative (Negative); BLOOD Negative (Negative); CLARITY Clear (Clear); COLOR Yellow (Yellow); GLUCOSE Negative (Negative); KETONE Negative (Negative); LEUKO ESTERASE Negative (Negative); NITRITE Negative (Negative); UROBILINOGEN 0.2 E.U./dl (0.0-1.0)
[2022-11-09 23:47] LABS: URINE AMPHETAMINES Negative (1000ng/ml); URINE BARBITURATES Negative (200ng/ml); URINE BENZODIAZEPINES Positive (200ng/ml); URINE CANNABINOIDS (THC) Positive (50ng/ml); URINE COCAINE Positive (300ng/ml); URINE METHADONE Negative (300ng/ml); URINE OPIATES Negative (300ng/ml); URINE PHENCYCLIDINE Negative (25ng/ml)
[2022-11-09 23:53] LABS: WBC 0-2 wbc/hpf (0-5)
[2022-11-10] VITALS (7 sets, daily range): BP systolic 116–125; BP diastolic 69–81
[2022-11-11] VITALS: BP 122/72
[2022-11-11 08:00] VITALS: BP 130/79
[2022-11-11 12:00] VITALS: BP 128/83
[2022-11-11 16:00] VITALS: BP 115/70
[2022-11-11 20:00] VITALS: BP 106/72; BP 137/86
[2022-11-12] VITALS: BP 113/74
[2022-11-12 08:00] VITALS: BP 96/60
[2022-11-12 12:00] VITALS: BP 94/56
[2022-11-12] MEDS ORDERED: LEVOFLOXACIN750 M2 PO (13:38)
[2022-11-12] MEDS ORDERED: VITAMIN B-1100 M1 PO (13:38)
[2022-11-12] MEDS ORDERED: NATURE'S BLEND F1 MG PO (13:38)
[2022-11-12] MEDS ORDERED: THERA TABLET400 MCG PO (13:38)
== END 2022-11-12 14:04 | disposition home or self-care (01) | DRG 774 ==
LOC: ED 21:42 → 5E 23:19 → EDHOLD 23:19 → 5E 11-10 02:52
PROVIDERS: Emergency Medicine; ADMIT Internal Medicine; ATTEND Internal Medicine
DX: F10.239 Alcohol dependence with withdrawal, unspecified (principal); J15.6 Pneumonia due to other Gram-negative bacteria; D64.9 Anemia, unspecified; F90.9 Attention-deficit hyperactivity disorder, unspecified type; R73.9 Hyperglycemia, unspecified; F14.10 Cocaine abuse, uncomplicated; F13.10 Sedative, hypnotic or anxiolytic abuse, uncomplicated; F12.10 Cannabis abuse, uncomplicated; R74.01 Elevation of levels of liver transaminase levels; Y90.2 Blood alcohol level of 40-59 mg/100 ml; F17.210 Nicotine dependence, cigarettes, uncomplicated; F41.9 Anxiety disorder, unspecified; R00.1 Bradycardia, unspecified; Z71.6 Tobacco abuse counseling; Z88.8 Allergy status to other drugs, medicaments and biological substances; Z79.1 Long term (current) use of non-steroidal anti-inflammatories (NSAID); Z79.899 Other long term (current) drug therapy

== ENCOUNTER 2023-02-02 10:14 | Inpatient (IN) | payer OTHER ==
[~2023-02-02] VITALS: Ht 180.3 cm; Wt 86.2 kg
[~2023-02-02 10:14] MED LIST changes: +LEVOFLOXACIN750 M2 PO
[2023-02-02 10:24] VITALS: BP 165/110
[2023-02-02 11:11] LABS: BASO % 0.3 % (0.0-1.0); EOS % 0.3 % (1.0-4.0); HEMATOCRIT 46.6 % (42.0-52.0); LYMPH # 1.5 10*3/uL (1.3-4.4); LYMPH % 12.2 % (27.0-41.0); MEAN CELL VOLUME 75.4 fl (80.0-94.0); MEAN CORPUSCULAR HGB 24.1 pg (27.0-31.0); MEAN PLATELET VOLUME 8.8 fl (9.6-12.3); MONO # 0.5 10*3/uL (0.1-1.0); MONO % 4.5 % (3.0-9.0); NEUT # 9.8 10*3/uL (2.3-7.9); NEUT % 82.3 % (47.0-73.0); PLATELET COUNT AUTOMATED 608 10*3/uL (130-400); RED BLOOD COUNT 6.18 10*6/uL (4.50-5.90); RED CELL DISTRI WIDTH 15.3 % (0-14.5); WHITE BLOOD COUNT 11.9 10*3/uL (4.8-10.8)
[2023-02-02 11:25] LABS: ACT PARTIAL THROMBO TIME 30.5 SECONDS (20.0-32.1); INTERNATIONAL NORM RATIO 1.1 (2.0-3.5)
[2023-02-02 11:36] LABS: ALKALINE PHOSPHATASE 85 U/L (46-116); BUN 11 mg/dl (9-23); CHLORIDE 100 mmol/L (98-107); LIPASE 25 U/L (12-53); POTASSIUM 3.7 mmol/L (3.4-5.1); SGPT/ALT 54 U/L (10-49); TOTAL PROTEIN 8.1 gm/dL (6.0-8.0)
[2023-02-02 11:38] LABS: ETHYL ALCOHOL < 3.0 mg/dl (<3)
[2023-02-02 13:40] VITALS: BP 121/70
[2023-02-02 16:00] VITALS: BP 135/84
[2023-02-02 16:37] LABS: BILIRUBIN Negative (Negative); BLOOD Negative (Negative); CLARITY Clear (Clear); COLOR Yellow (Yellow); GLUCOSE Negative (Negative); KETONE 1+ (Negative); LEUKO ESTERASE Negative (Negative); NITRITE Negative (Negative); SPECIFIC GRAVITY >= 1.030 (1.001-1.030)
[2023-02-02 16:42] LABS: URINE AMPHETAMINES Negative (1000ng/ml); URINE BARBITURATES Negative (200ng/ml); URINE BENZODIAZEPINES Positive (200ng/ml); URINE CANNABINOIDS (THC) Positive (50ng/ml); URINE COCAINE Positive (300ng/ml); URINE METHADONE Negative (300ng/ml); URINE OPIATES Negative (300ng/ml); URINE PHENCYCLIDINE Negative (25ng/ml)
[2023-02-02 17:01] LABS: BACTERIA TRACE; RBC 0-2 rbc/hpf (0-2); WBC 0-2 wbc/hpf (0-5)
[2023-02-02 20:00] VITALS: BP 126/68
[2023-02-03] VITALS: BP 132/75
[2023-02-03 08:00] VITALS: BP 156/93
[2023-02-03 08:53] LABS: BASO % 0.5 % (0.0-1.0); EOS % 0.5 % (1.0-4.0); HEMATOCRIT 45.8 % (42.0-52.0); LYMPH % 25.3 % (27.0-41.0); MEAN CELL VOLUME 76.5 fl (80.0-94.0); MEAN CORPUSCULAR HGB 23.7 pg (27.0-31.0); MEAN PLATELET VOLUME 9.2 fl (9.6-12.3); MONO # 0.6 10*3/uL (0.1-1.0); NEUT # 5.1 10*3/uL (2.3-7.9); NEUT % 65.4 % (47.0-73.0); PLATELET COUNT AUTOMATED 556 10*3/uL (130-400); RED BLOOD COUNT 5.99 10*6/uL (4.50-5.90); RED CELL DISTRI WIDTH 15.4 % (0-14.5); WHITE BLOOD COUNT 7.7 10*3/uL (4.8-10.8)
[2023-02-03 09:26] LABS: ALKALINE PHOSPHATASE 77 U/L (46-116); BUN 7 mg/dl (9-23); CHLORIDE 104 mmol/L (98-107); POTASSIUM 3.9 mmol/L (3.4-5.1); SGPT/ALT 54 U/L (10-49); TOTAL PROTEIN 7.5 gm/dL (6.0-8.0)
[2023-02-03 12:00] VITALS: BP 144/89
[2023-02-03 16:00] VITALS: BP 136/74
[2023-02-04] VITALS: BP 126/67
[2023-02-04 08:00] VITALS: BP 134/78
[2023-02-04] MEDS ORDERED: ATARAX,VISTARIL50 MG PO (10:36)
[2023-02-04] MEDS ORDERED: ONDANSETRON HYDR4 M1 PO (10:36)
[2023-02-04 12:00] VITALS: BP 132/56
== END 2023-02-04 14:05 | disposition home or self-care (01) | DRG 775 ==
LOC: ED 10:14 → EDHOLD 11:21 → 4E 11:21 → EDHOLD 11:25 → 4E 13:36
PROVIDERS: Emergency Medicine; Family Medicine; ADMIT Family Medicine; ATTEND Family Medicine
DX: F10.230 Alcohol dependence with withdrawal, uncomplicated (principal); F41.9 Anxiety disorder, unspecified; D72.9 Disorder of white blood cells, unspecified; R74.01 Elevation of levels of liver transaminase levels; R71.8 Other abnormality of red blood cells; D75.839 Thrombocytosis, unspecified; R73.9 Hyperglycemia, unspecified; F19.10 Other psychoactive substance abuse, uncomplicated; F90.9 Attention-deficit hyperactivity disorder, unspecified type; Z86.59 Personal history of other mental and behavioral disorders; Z88.8 Allergy status to other drugs, medicaments and biological substances; Z81.1 Family history of alcohol abuse and dependence; Z87.898 Personal history of other specified conditions

== ENCOUNTER 2024-10-17 21:59 | Inpatient (IN) | payer OTHER ==
[~2024-10-17] VITALS: Ht 180.3 cm; Wt 76.3 kg
[2024-10-17 22:19] VITALS: BP 92/54
[2024-10-17 23:31] LABS: ALKALINE PHOSPHATASE 54 U/L (46-116); BUN 9 mg/dl (9-23); CHLORIDE 99 mmol/L (98-107); ETHYL ALCOHOL 7.2 mg/dl (<3); POTASSIUM 3.9 mmol/L (3.4-5.1); SGPT/ALT 11 U/L (5-49); TOTAL PROTEIN 7.2 gm/dL (6.0-8.0)
[2024-10-17 23:56] LABS: BASO % 0.3 % (0.0-1.0); EOS # 0.5 10*3/uL (0.0-0.4); EOS % 5.4 % (1.0-4.0); HEMATOCRIT 42.8 % (42.0-52.0); MEAN CELL VOLUME 89.7 fl (80.0-94.0); MEAN CORPUSCULAR HGB 29.4 pg (27.0-31.0); MEAN CORPUSCULAR HGB CONC 32.7 g/dl (33.0-37.0); MONO # 0.6 10*3/uL (0.1-1.0); MONO % 6.9 % (3.0-9.0); NEUT # 3.4 10*3/uL (2.3-7.9); NEUT % 38.5 % (47.0-73.0); PLATELET COUNT AUTOMATED 416 10*3/uL (130-400); RED BLOOD COUNT 4.77 10*6/uL (4.50-5.90); RED CELL DISTRI WIDTH 12.7 % (0-14.5); WHITE BLOOD COUNT 8.7 10*3/uL (4.8-10.8)
[2024-10-18 00:02] LABS: URINE AMPHETAMINES Negative (1000ng/ml); URINE BARBITURATES Negative (200ng/ml); URINE BENZODIAZEPINES Positive (200ng/ml); URINE CANNABINOIDS (THC) Positive (50ng/ml); URINE COCAINE Positive (300ng/ml); URINE METHADONE Positive (300ng/ml); URINE OPIATES Positive (300ng/ml); URINE PHENCYCLIDINE Negative (25ng/ml)
[2024-10-18] MEDS ORDERED: LORazepam 1 MG TAB PO ONE ×2 (02:05→06:45)
[2024-10-18] MEDS ORDERED: BISACODYL 10 MG SUPP R PRN (04:40)
[2024-10-18] MEDS ORDERED: BISACODYL 5 MG TAB PO PRN (04:40)
[2024-10-18] MEDS ORDERED: ACETAMINOPHEN 650 MG SUPP R PRN (04:40)
[2024-10-18] MEDS ORDERED: Magnesium Hydroxide 30 ML UDC PO PRN (04:40)
[2024-10-18] MEDS ORDERED: ACETAMINOPHEN 325 MG TAB PO PRN (04:40)
[2024-10-18] MEDS ORDERED: hydrOXYzine 50 MG CAP PO PRN (04:55)
[2024-10-18] MEDS ORDERED: MAGNESIUM SULFATE 100 ML IV ONE (04:55)
[2024-10-18] MEDS ORDERED: FOLIC ACID 1 MG TAB PO ONE (04:55)
[2024-10-18] MEDS ORDERED: Water, Sterile 10 ML VIAL IV PRN (04:55)
[2024-10-18] MEDS ORDERED: METHOCARBAMOL 750 MG TAB PO PRN (04:55)
[2024-10-18] MEDS ORDERED: Dicyclomine Hydrochloride 20 MG TAB PO PRN (04:55)
[2024-10-18] MEDS ORDERED: diazePAM 10 MG/2 ML SYR IV PRN (05:00)
[2024-10-18] MEDS ORDERED: CALCIUM (TUMS) 500MG PO PRN (05:35)
[2024-10-18] MEDS ORDERED: SODIUM CHLORIDE 0.9% 1,000 ML IV ONE (05:40)
[2024-10-18] MEDS ORDERED: Thiamine 200 MG/2 ML VIAL IV SCH (06:00)
[2024-10-18] MEDS ORDERED: Buprenorphine Hydrochloride 2 MG TAB SL SCH (06:00)
[2024-10-18 07:06] LABS: BASO % 0.6 % (0.0-1.0); EOS # 0.4 10*3/uL (0.0-0.4); HEMATOCRIT 45.5 % (42.0-52.0); MEAN CELL VOLUME 90.5 fl (80.0-94.0); MEAN CORPUSCULAR HGB 29.6 pg (27.0-31.0); MEAN CORPUSCULAR HGB CONC 32.7 g/dl (33.0-37.0); MEAN PLATELET VOLUME 8.5 fl (9.6-12.3); MONO # 0.6 10*3/uL (0.1-1.0); MONO % 9.4 % (3.0-9.0); NEUT # 3.3 10*3/uL (2.3-7.9); NEUT % 48.1 % (47.0-73.0); PLATELET COUNT AUTOMATED 419 10*3/uL (130-400); RED BLOOD COUNT 5.03 10*6/uL (4.50-5.90); RED CELL DISTRI WIDTH 12.9 % (0-14.5); WHITE BLOOD COUNT 6.8 10*3/uL (4.8-10.8)
[2024-10-18 07:51] LABS: FREE T4 1.21 ng/dl (0.89-1.76)
[2024-10-18] MEDS ORDERED: LORazepam 1 MG TAB PO SCH (08:00)
[2024-10-18 08:48] LABS: VITAMIN D, 25-HYDROXY 39.4 ng/mL (30-100)
[2024-10-18] MEDS ORDERED: MULTIVITAMIN 1 TAB TAB PO SCH (10:00)
[2024-10-18] MEDS ORDERED: Enoxaparin Sodium 40 MG/0.4 ML SYR SC SCH (10:00)
[2024-10-18 10:30] VITALS: BP 127/77
[2024-10-18 16:13] VITALS: BP 134/79
[2024-10-18] MEDS ORDERED: Amitriptyline Hydrochloride 25 MG TAB PO SCH (22:00)
[2024-10-19] MEDS ORDERED: Buprenorphine Hydrochloride 2 MG TAB SL SCH (06:00)
[2024-10-19 06:26] VITALS: BP 135/73
[2024-10-19 08:05] LABS: BASO % 0.4 % (0.0-1.0); EOS # 0.3 10*3/uL (0.0-0.4); EOS % 4.2 % (1.0-4.0); HEMATOCRIT 45.9 % (42.0-52.0); MEAN CELL VOLUME 89.6 fl (80.0-94.0); MEAN CORPUSCULAR HGB 29.7 pg (27.0-31.0); MEAN CORPUSCULAR HGB CONC 33.1 g/dl (33.0-37.0); MONO # 0.5 10*3/uL (0.1-1.0); NEUT # 4.4 10*3/uL (2.3-7.9); NEUT % 59.7 % (47.0-73.0); PLATELET COUNT AUTOMATED 430 10*3/uL (130-400); RED BLOOD COUNT 5.12 10*6/uL (4.50-5.90); WHITE BLOOD COUNT 7.4 10*3/uL (4.8-10.8)
[2024-10-19 08:24] LABS: BUN 7 mg/dl (9-23); CHLORIDE 104 mmol/L (98-107); POTASSIUM 4.5 mmol/L (3.4-5.1)
[2024-10-19] MEDS ORDERED: Thiamine 100 MG TAB PO SCH (10:00)
[2024-10-19 11:45] VITALS: BP 124/79
[2024-10-19 12:00] VITALS: BP 124/79
[2024-10-19 16:00] VITALS: BP 134/77
[2024-10-19] MEDS ORDERED: LORazepam 1 MG TAB PO SCH ×2 (18:00)
[2024-10-19 20:00] VITALS: BP 135/80
[2024-10-20] VITALS: BP 115/73
[2024-10-20] MEDS ORDERED: LORazepam 1 MG TAB PO PRN ×2 (06:00→10:55)
[2024-10-20 08:00] VITALS: BP 125/66
[2024-10-20] MEDS ORDERED: LORazepam 2 MG/ML VIAL IV ONE (09:05)
[2024-10-20 12:00] VITALS: BP 137/64
== END 2024-10-20 17:00 | disposition left against medical advice (07) | DRG 770 ==
LOC: ED 21:59 → EDHOLD 10-18 04:08 → 4E 10-18 04:08 → EDHOLD 10-18 06:18 → 4E 10-19 11:30
PROVIDERS: Internal Medicine; Student in an Organized Health Care Education/Training Program; ADMIT Internal Medicine; ATTEND Internal Medicine
DX: F10.239 Alcohol dependence with withdrawal, unspecified (principal); E87.1 Hypo-osmolality and hyponatremia; F90.9 Attention-deficit hyperactivity disorder, unspecified type; E55.9 Vitamin D deficiency, unspecified; F17.210 Nicotine dependence, cigarettes, uncomplicated; Z53.29 Procedure and treatment not carried out because of patient's decision for other reasons; R00.1 Bradycardia, unspecified; F12.10 Cannabis abuse, uncomplicated; F14.10 Cocaine abuse, uncomplicated; F41.9 Anxiety disorder, unspecified; D75.839 Thrombocytosis, unspecified; F11.10 Opioid abuse, uncomplicated; Z81.1 Family history of alcohol abuse and dependence; Z88.8 Allergy status to other drugs, medicaments and biological substances; Z91.09 Other allergy status, other than to drugs and biological substances; Z71.6 Tobacco abuse counseling; Y90.0 Blood alcohol level of less than 20 mg/100 ml